=== PATIENT | male | born 1980 | race Two or more races ===

== ENCOUNTER 2016-05-29 23:16 | Emergency (ER) | payer SELFPAY ==
[2016-05-29] MEDS ORDERED: IOPAMIDOL 300 (61%) 100 ML VIAL IV ONE (23:17)
[2016-05-29] MEDS ORDERED: KETOROLAC TROMETHAMINE 15 MG/ML VIAL ONE (23:56)
[2016-05-30 00:12] LABS: BASO % 0.2 % (0.2-1.0); EOS # 0.3 (0.0-0.5); EOS % 3.1 % (0.9-2.9); HEMATOCRIT 40.9 % (32.0-52.0); HEMOGLOBIN 13.8 gm/l (14.0-18.0); IMM NEUT% 0.2 % (0-1); LYMPH # 2.8 (1.0-4.8); LYMPH % 27.5 % (15-45); MEAN CELL VOLUME 90.3 fl (80.0-94.0); MEAN CORPUSCULAR HEMOGLOBIN 30.5 pg (27.0-31.0); MEAN CORPUSCULAR HGB CONC 33.7 g/dl (33.0-37.0); MEAN PLATELET VOLUME 9.8 fl (7.4-10.4); MONO # 1.1 (0.0-0.8); MONO % 10.3 % (4-12); NEUT % 58.7 % (43-75); PLATELET COUNT 266 K/mm3 (130-400); RED CELL DISTRIBUTION WIDTH 12.5 % (11.5-14.5)
[2016-05-30 00:27] LABS: CALCIUM 9.1 mg/dL (8.6-10.3)
[2016-05-30] MEDS ORDERED: ACETAMINOPHEN 500 MG TABLET ONE (03:16)
--- NOTE | 2016-05-30 08:56 | CT ---
NECK SOFT TISSUE W/ CON COMPARISON: None. HISTORY: Severe left sided sore throat. TECHNIQUE: Intravenous injection 80 mL Isovue 300. Using a [employer] Aquilion [address] scanner, images obtained from the superior mediastinum to the skull base. An automated dose reduction technique was used to minimize patient radiation dose. Dose information: CTDIvol (mGy): 10.90 DLP(mGycm): 427.90 FINDINGS: Lymph nodes: No lymphadenopathy. Superior mediastinum: Normal. Vessels: Normal. Nasopharynx: Normal. Oropharynx: Normal. Hypopharynx: Normal. Larynx: Normal. Epiglottis: Normal. Esophagus: Normal. Trachea: Normal. Tongue: Normal. Tonsils: Mildly enlarged lingual tonsils. Normal palatine tonsils. No abscess. Salivary glands: Normal. Thyroid gland: Normal. Retropharyngeal space: Normal. Parapharyngeal space: Normal. Paranasal sinuses: Mucous retention cysts in both maxillary sinuses. No diffuse mucosal thickening. No air-fluid levels. Nasal passages: Normal. Facial bones: Normal. Orbits: Normal. Cervical spine: Normal. Lung apices: Normal. Paraspinal muscles: Normal. IMPRESSION: 1. No lymphadenopathy. No narrowing of the airway. Normal tonsils. Normal epiglottis. No abscess. 2. Incidentally noted mucus retention cysts bilaterally in the maxillary sinuses. Preliminary report by [employer] radiologist Jose Martinez M.D. 05/30/2016 at 02:44
== END 2016-05-30 03:31 | disposition home or self-care (01) ==
LOC: ED 23:16
DX: J02.9 Acute pharyngitis, unspecified (principal); F17.210 Nicotine dependence, cigarettes, uncomplicated
CPT/HCPCS: 85025; 80048; 87880; 70491; 99284 ×2; 96374; J1885; A9270; Q9967